=== PATIENT | female | born 1955 | race Caucasian/White ===

== ENCOUNTER 2020-10-02 11:59 | Emergency (ER) | payer MEDICARE ==
--- NOTE | 2020-10-02 12:04 | EDM.PDOC ---
ED HPI GENERAL MEDICAL PROBLEM - General Chief Complaint: Lower Extremity Injury/Pain Stated Complaint: FALL VIA NORTH Time Seen by Provider: 10/02/20 12:00 Source of Information: Reports: Patient, EMS History Limitations: Reports: No Limitations - History of Present Illness INITIAL COMMENTS - FREE TEXT/NARRATIVE: 65 yo female with a hx of a R knee replacement 5 yrs ago was attempting to jump from a short dresser to a bed nearby and after she landed on the bed she fell backwards with resulting injury to her R knee. Here via EMS. Got 100 mcg IM from EMS en route. Onset: Today, Sudden Onset Date: 10/02/20 Duration: Minutes:, Constant Location: Reports: Lower Extremity, Right Quality: Reports: Ache Severity: Moderate Improves with: Reports: Medication Worsens with: Reports: Movement Context: Reports: Trauma Associated Symptoms: Reports: No Other Symptoms Treatments [employer]: Reports: Other (see below) (See HPI) Right Knee Pain Score (Numeric/FACES): 5 - Related Data Allergies Allergy/AdvReac Type Severity Reaction Status Date / Time No Known Allergies Allergy Verified 10/18/18 16:41 Home Meds: Home Meds PARoxetine [Paxil] 20 mg PO DAILY 10/02/20 [History] Pregabalin 25 mg PO DAILY 10/02/20 [History] amLODIPine Besylate [Amlodipine Besylate] 5 mg PO DAILY 10/02/20 [History] Review of Systems - Review of Systems Review Of Systems: See Below Constitutional: Reports: No Symptoms Respiratory: Reports: No Symptoms Cardiovascular: Reports: No Symptoms GI/Abdominal: Reports: No Symptoms Musculoskeletal: Reports: Other (pain to R knee and just above and below) Skin: Reports: No Symptoms Neurological: Reports: No Symptoms ED EXAM, GENERAL - Physical Exam Exam: See Below Exam Limited By: No Limitations General Appearance: Alert, WD/WN, No Apparent Distress Cardiovascular: Other (intact peripheral pulses) Extremities: Normal Inspection, Other (long leg splint applied by EMS is left in place until after the X-rays were obtained and more pain meds were given. ) Neurological: Alert, Oriented, CN II-XII Intact, Normal Cognition, No Motor/Sensory Deficits Psychiatric: Normal Affect, Normal Mood Skin Exam: Warm, Dry, Intact, Normal Color, No Rash Course - Vital Signs Text/Narrative:: Orthopedics called @ 1248h will come and manage care. Last Recorded V/S: Last Vital Signs Temp 36.7 C 10/02/20 12:02 Pulse 85 10/02/20 14:55 Resp 20 10/02/20 13:57 BP 123/74 10/02/20 14:55 Pulse Ox 97 10/02/20 14:55 - Orders/Labs/Meds Orders: Active Orders 24 hr Category Date Time Status Sodium Chloride 0.9% [Saline Flush] Med 10/02/20 12:13 Active 10 ml FLUSH ASDIRECTED PRN Saline Lock Insert [OM.PC] Routine Oth 10/02/20 12:13 Ordered Medication Orders Sodium Chloride (Sodium Chloride 0.9% 10 Ml Syringe) 10 ml FLUSH ASDIRECTED PRN PRN Reason: Keep Vein Open Last Admin: 10/02/20 12:49 Dose: 10 ml Documented by: ELHAM Meds: Medications Generic Name Dose Route Start Last Admin Trade Name Freq PRN Reason Stop Dose Admin Sodium Chloride 10 ml 10/02/20 12:13 10/02/20 12:49 Sodium Chloride 0.9% 10 Ml Syringe FLUSH 10 ml ASDIRECTED PRN Administration Keep Vein Open Discontinued Medications Generic Name Dose Route Start Last Admin Trade Name Freq PRN Reason Stop Dose Admin Hydromorphone HCl 0.5 mg 10/02/20 12:14 10/02/20 12:49 Hydromorphone 0.5 Mg/0.5 Ml Syringe IVPUSH 10/02/20 12:15 0.5 mg ONETIME ONE Administration Propofol Confirm 10/02/20 13:24 Propofol 200 Mg/20 Ml Sdv Administered 10/02/20 13:25 Dose 200 mg .ROUTE .STK-MED ONE - Radiology Interpretation Free Text/Narrative:: X-rays of R femur and tib/fib-dislocation of knee Departure - Departure Time of Disposition: 16:05 Disposition: Home, Self-Care 01 Condition: Fair Clinical Impression: Right knee dislocation Qualifiers: Encounter type: initial encounter Qualified Code(s): S83.104A - Unspecified dislocation of right knee, initial encounter - Discharge Information *PRESCRIPTION DRUG MONITORING PROGRAM REVIEWED*: No *COPY OF PRESCRIPTION DRUG MONITORING REPORT IN PATIENT KISHOR: No Instructions: Knee Dislocation, [id number] Referrals: PCP,None [Primary Care Provider] - Forms: ED Department Discharge Additional Instructions: Wear immobilizer at all times. Weight bearing as tolerated. F/U with orthopedics next week as scheduled. Call for further questions to orthopedics or here if they are not available. Sepsis Event Note (ED) - Focused Exam Vital Signs: Vital Signs Temp Pulse Resp BP Pulse Ox 10/02/20 14:55 85 123/74 97 10/02/20 13:57 82 20 128/79 100 10/02/20 13:54 82 19 111/72 99 10/02/20 13:51 84 16 119/67 99 10/02/20 13:48 83 19 110/62 97 10/02/20 13:45 87 22 H 105/69 98 10/02/20 13:42 89 19 100/66 97 10/02/20 13:41 91 14 103/64 95 10/02/20 13:36 92 19 190/163 H 95 10/02/20 13:33 98 15 188/159 H 96 10/02/20 13:31 87 19 197/158 H 97 10/02/20 13:25 89 18 122/75 98 10/02/20 12:55 83 16 119/74 98 10/02/20 12:02 36.7 C 80 18 136/61 95 - My Orders Last 24 Hours: My Active Orders 10/02/20 12:13 Sodium Chloride 0.9% [Saline Flush] 10 ml FLUSH ASDIRECTED PRN Saline Lock Insert [OM.PC] Routine - Assessment/Plan Last 24 Hours: My Active Orders 10/02/20 12:13 Sodium Chloride 0.9% [Saline Flush] 10 ml FLUSH ASDIRECTED PRN Saline Lock Insert [OM.PC] Routine
[2020-10-02] MEDS ORDERED: Sodium Chloride 0.9% 10 ML Syringe FLUSH PRN (12:13)
[2020-10-02] MEDS ORDERED: HYDROmorphone 0.5 MG/0.5 ML Syringe IVPUSH ONE (12:14)
--- NOTE | 2020-10-02 12:59 | CR ---
Tibia Fibula Rt, Femur Min 2V Rt CLINICAL HISTORY: Fall FINDINGS: Patient has a total knee arthroplasty. Tibia is subluxed anteriorly. No fracture line is identified. 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 Hip components appear well seated. No fracture seen. Impression: Right hip arthroplasty intact Right total knee with anterior subluxation of the tibia
[2020-10-02] MEDS ORDERED: Propofol 200 MG/20 ML SDV ONE (13:24)
--- NOTE | 2020-10-02 15:48 | PCM.SN.2 ---
- Free Text/Narrative Note: Post-reduction visits: 1405: Right tibialis posterior pulse, 1+. Right Dorsalis pedis pulse, 2+. Demonstrates active motion of all R toes. Capillary refill appreciated, < 3 seconds. Obtained release of information signature from to get orthopedic records from [facility] [place] in [place]. Hard-copy prescription provided to for pain medication to fill at pharmacy; 5mg-325 mg Lerna, 1-2 tabs PO q6hrs prn pain, dispense #15. 1448: Right tibialis posterior pulse, 2+. Right Dorsalis pedis pulse, 2+. Patient was up at bedside commode with 2 ED RNs in room, patient had brief syncopal episode, was assisted into bed. Vitals WNL. 1520: Right tibialis posterior pulse, 2+. Right Dorsalis pedis pulse, 2+. Active motion of all toes. Capillary refill appreciated, <3 seconds. 1600: Right tibialis posterior pulse, 2+. Right Dorsalis pedis pulse, 2+. Active motion of all toes. Capillary refill appreciated, < 3 seconds. Patient was assisted with 1 ED RN in the room to stand by bedside and became lightheaded. No syncopal episode. Patient was assisted back into bed. IV fluids were started. Education provided to patient and on how to monitor tibialis posterior and dorsalis pedis pulses for the next 48 hours; if pulses diminished, right foot/lower extremity turn blue, feels cold, or significant increase in pain occurs, should return to the emergency room for evaluation. Patient was placed in a hinged extension brace, locked in full extension immediately after right knee reduction. Education provided to patient and on how to adjust straps as needed. Patient to wear brace at all times, keep right leg in full extension. Will follow up with orthopedics in 1 week for re-evaluation. Encouraged and patient to call clinic with any questions or concerns that arise prior to scheduled apt. Patient and expressed understanding of return precautions to ED, compliance with brace, and 1 week follow up apt. Handed off discharge instructions to Dr. Dubon at 1600, as patient is cleared from an orthopedic standpoint to be discharged.
[2020-10-02] MEDS ORDERED: Sodium Chloride 0.9% 1,000 ML IV SCH (16:15)
== END 2020-10-02 17:15 | disposition home or self-care (01) ==
LOC: JP.ED 11:59
DX: S83.104A Unspecified dislocation of right knee, initial encounter (principal); Z79.899 Other long term (current) drug therapy; W06.XXXA Fall from bed, initial encounter
CPT/HCPCS: 73552; 73590; 96374; 99283; 99284; J1170; J2704; J7030

== ENCOUNTER 2020-12-06 14:30 | Emergency (ER) | payer MEDICARE ==
--- NOTE | 2020-12-06 15:44 | EDM.PDOC ---
ED HPI GENERAL MEDICAL PROBLEM - General Chief Complaint: Bite:Animal, Insect Stated Complaint: POSSIBLE BAT BITE Time Seen by Provider: 12/06/20 15:30 Source of Information: Reports: Patient, RN Notes Reviewed History Limitations: Reports: No Limitations - History of Present Illness INITIAL COMMENTS - FREE TEXT/NARRATIVE: Moses presents today for complaints of waking to a bat in her bedroom. She states she left the room, shut the door and opened the door to the outside. She reports the bat then flew out of the house. She is not sure if she was bitten during the night. She denies cough, SOB, difficulty breathing, ever, chills, nausea, vomiting, change in bowel/bladder or other concerns. She reports her recently dislocated right knee is doing well. She has not been vaccinated or had immunoglobulin for rabies before. - Related Data Allergies Allergy/AdvReac Type Severity Reaction Status Date / Time No Known Allergies Allergy Verified 12/06/20 15:04 Home Meds: Home Meds PARoxetine [Paxil] 20 mg PO DAILY 10/02/20 [History] Pregabalin 25 mg PO DAILY 10/02/20 [History] amLODIPine Besylate [Amlodipine Besylate] 5 mg PO DAILY 10/02/20 [History] Past Medical History HEENT History: Reports: Impaired Vision Cardiovascular History: Reports: Hypertension Genitourinary History: Reports: None [employer]CH[employer]IAN History: Reports: Other Musculoskeletal History: right knee dislocation 10/02/20 Neurological History: Reports: Neuropathy, Peripheral Psychiatric History: Reports: Panic Attack Oncologic (Cancer) History: Reports: Breast - Infectious Disease History Infectious Disease History: Reports: Chicken Pox, Measles, Mumps - Past Surgical History Head Surgeries/Procedures: Reports: None HEENT Surgical History: Reports: None Cardiovascular Surgical History: Reports: None Female Surgical History: Reports: Mastectomy, Tubal Ligation Other Female Surgeries/Procedures: right Neurological Surgical History: Reports: None Musculoskeletal Surgical History: Reports: Hip Replacement, Knee Replacement Oncologic Surgical History: Reports: Mastectomy Other Oncologic Surgeries/Procedures: right sided mastectomy Dermatological Surgical History: Reports: None Social & Family History - Caffeine Use Caffeine Use: Reports: Coffee ED ROS GENERAL - Review of Systems Review Of Systems: See Below Constitutional: Reports: No Symptoms HEENT: Reports: No Symptoms Respiratory: Reports: No Symptoms Cardiovascular: Reports: No Symptoms Endocrine: Reports: No Symptoms GI/Abdominal: Reports: No Symptoms : Reports: No Symptoms Musculoskeletal: Reports: No Symptoms Skin: Reports: No Symptoms Neurological: Reports: No Symptoms Psychiatric: Reports: No Symptoms Hematologic/Lymphatic: Reports: No Symptoms Immunologic: Reports: No Symptoms ED EXAM, ANIMAL BITE - Physical Exam Exam: See Below Text/Narrative:: Moses is an alert and oriented 65 year old female with known exposure to a bat for unknown amount of time without known bite site. risks of immunoglobulin, vaccination series for Rabies provided and discussed. All her questions were answered. Moses requests to complete immunoglobulin injections as well as the rabies vaccination series. She verbalizes understanding of injections, risks and possible side effects. She wishes to proceed with injections as ordered. Exam Limited By: No Limitations General Appearance: Alert, WD/WN, No Apparent Distress Ears: Normal External Exam, Normal Canal, Hearing Grossly Normal, Normal TMs Nose: Normal Inspection, Normal Mucosa, No Blood Throat/Mouth: Normal Inspection, Normal Lips, Normal Teeth, Normal Gums, Normal Oropharynx, Normal Voice, No Airway Compromise Head: Atraumatic, Normocephalic Neck: Normal Inspection, Supple, Non-Tender, Full Range of Motion Respiratory/Chest: No Respiratory Distress, Lungs Clear, Normal Breath Sounds, No Accessory Muscle Use, Chest Non-Tender. No: Respiratory Distress, Crackles, Rales, Rhonchi, Wheezing, Stridor Cardiovascular: Normal Peripheral Pulses, Regular Rate, Rhythm, No Edema, No Gallop, No Murmur, No Rub Back Exam: Normal Inspection, Full Range of Motion. No: CVA Tenderness (R), CVA Tenderness (L) Extremities: Normal Inspection, Normal Range of Motion, Non-Tender, No Pedal Edema, Normal Capillary Refill, Other (no bite markings, ecchymosis or wounds noted) Neurological: Alert, Oriented, CN II-XII Intact, Normal Cognition, Normal Gait, Normal Reflexes, No Motor/Sensory Deficits Psychiatric: Normal Affect, Normal Mood Skin Exam: Normal Color, Warm/Dry Lymphatic: No Adenopathy Course - Vital Signs Last Recorded V/S: Last Vital Signs Temp 36.1 C 12/06/20 15:06 Pulse 81 12/06/20 15:06 Resp 16 12/06/20 15:06 BP 141/84 H 12/06/20 15:06 Pulse Ox 95 12/06/20 15:06 - Orders/Labs/Meds Meds: Medications Discontinued Medications Generic Name Dose Route Start Last Admin Trade Name Elijah PRN Reason Stop Dose Admin Rabies Immune Globulin 1,650 unit 12/06/20 16:00 12/06/20 16:05 Rabies Immune Globulin/Pf 300 Unit/Ml 5 Ml Sdv IM 12/06/20 16:01 1,650 unit ONETIME ONE Administration Rabies Vaccine 2.5 unit 12/06/20 16:00 12/06/20 16:00 Rabies Vaccine (Rex) 2.5 Unit Inj Kit IM 12/06/20 16:01 2.5 unit .ONCE ONE Administration - Re-Assessments/Exams Free Text/Narrative Re-Assessment/Exam: 12/06/20 15:05 Reviewed bat exposure while sleeping, patient history. All of Moses's questions were answered, she would like the rabies vaccination series and immunoglobulin. Immunoglobulin and rabies vaccination administered per nursing staff, patient observed for 30 minutes, she tolerated well. She will need to return for days 3, 7 and 14 for further vaccinations. Today is day 0. Outpatient order completed for remaining series of vaccinations. Departure - Departure Time of Disposition: 16:46 Disposition: Home, Self-Care 01 Condition: Good Clinical Impression: Exposure to bat without known bite - Discharge Information *PRESCRIPTION DRUG MONITORING PROGRAM REVIEWED*: Not Applicable *COPY OF PRESCRIPTION DRUG MONITORING REPORT IN PATIENT KISHOR: Not Applicable Instructions: Animal Bite, Adult, [id number] Referrals: Raciel Ortega Sr, MD [Primary Care Provider] - Forms: ED Department Discharge Additional Instructions: You have been evaluated for bat exposure while sleeping at night with unknown bat bite. Rabies vaccine injection today, you must return on day 3 (12/09/2020) day 7 (12/13/2020) and day 14 (12/20/2020) for additional vaccine injections. You can present to the emergency room for these vaccinations. Return for any worsening, issues or concerns. Sepsis Event Note (ED) - Evaluation Sepsis Screening Result: No Definite Risk - Focused Exam Vital Signs: Vital Signs Temp Pulse Resp BP Pulse Ox 12/06/20 15:06 36.1 C 81 16 141/84 H 95 - Assessment/Plan Assessment:: Exposure to bat without known bite Plan: Patient evaluated for bat exposure while sleeping at night with unknown bat bite. Rabies vaccine injection today, she must return on day 3 (12/09/2020) day 7 (12/13/2020) and day 14 (12/20/2020) for additional vaccine injections. She can present to the emergency room for these vaccinations. Return for any worsening, issues or concerns.
[2020-12-06] MEDS ORDERED: Rabies Immune Globulin/PF 300 UNIT/ML 5 ML SDV IM ONE (16:00)
[2020-12-06] MEDS ORDERED: Rabies Vaccine (Avian) 2.5 Unit Inj Kit IM ONE (16:00)
== END 2020-12-06 16:53 | disposition home or self-care (01) ==
LOC: JP.ED 14:30
DX: Z20.3 Contact with and (suspected) exposure to rabies (principal); Z23 Encounter for immunization; I10 Essential (primary) hypertension; Z79.899 Other long term (current) drug therapy
CPT/HCPCS: 90375; 90471; 90675; 96372; 99283